=== PATIENT | male | born 1955 | race African-American/Black ===

== ENCOUNTER 2017-08-13 14:34 | Observation (INO) | payer OTHER ==
[~2017-08-13] VITALS: Ht 170.2 cm; Wt 100.8 kg
[~2017-08-13 14:34] MED LIST: MOTRIN600 MG PO
[2017-08-13 15:15] LABS: HEMATOCRIT 39.2 % (38.0-50.0); MCH 33.8 PG (29.0-34.0); MCHC 35.7 G/DL (30.0-36.0); MCV 94.7 FL (86-99); PLATELET COUNT 238 K/uL (156-360); RBC DIS.WIDTH-CV 13.1 % (11.8-14.6); RBC DIS.WIDTH-SD 45.1 % (39-53); RED BLOOD COUNT 4.14 M/uL (4.00-5.50); WHITE BLOOD COUNT 5.7 K/uL (4.1-10.2)
[2017-08-13 15:25] LABS: CHLORIDE 106 mEq/L (99-109); POTASSIUM 3.9 mEq/L (3.7-5.4); SODIUM 142 mEq/L (136-147)
[2017-08-13 15:26] LABS: GLUCOSE 89 mg/dL (70-99)
[2017-08-13 15:30] LABS: CREATININE 1.4 mg/dL (0.6-1.3); GFR ESTIMATE (CALCULATED) > 59 mL/min/ (58.99-99999)
[2017-08-13 15:31] LABS: UREA NITROGEN (BUN) 11 mg/dL (9-23)
[2017-08-13 15:36] LABS: TROP-I INTERPRETATION NEGATIVE; TROPONIN-I < 0.01 ng/mL (0.0-0.30)
[2017-08-13 15:57] LABS: ALBUMIN 4.1 g/dL (3.2-4.8)
[2017-08-13 16:00] LABS: TOTAL PROTEIN 6.9 g/dL (6.4-8.3)
[2017-08-13 16:02] LABS: TOTAL BILIRUBIN 0.3 mg/dL (0.0-1.0)
[2017-08-13 16:03] LABS: ALKALINE PHOSPHATASE 66 IU/L (3-129)
[2017-08-13 16:06] LABS: ALT (GPT) 28 IU/L (3-49); AST (GOT) 19 IU/L (2-34); DIRECT BILIRUBIN 0.1 mg/dL (0.0-0.3)
[2017-08-13] MEDS ORDERED: GABAPENTIN300 MG PO (16:23)
[2017-08-13] MEDS ORDERED: ATORVASTATIN CA20 MG PO (16:24)
[2017-08-13] MEDS ORDERED: [UNRECOGNIZED DRUG - OTHER] PO (16:24)
[2017-08-13] MEDS ORDERED: GLUCOPHAGE XR750 MG PO (16:25)
[2017-08-13] MEDS ORDERED: CLONIDINE HCL0.1 MG PO (16:25)
[2017-08-13] MEDS ORDERED: METOPROLOL TART25 MG PO (16:26)
[2017-08-13 17:54] VITALS: BP 160/81
[2017-08-13] MEDS ORDERED: TRAMADOL HCL50 MG PO (18:23)
[2017-08-13 19:57] LABS: TROP-I INTERPRETATION NEGATIVE; TROPONIN-I < 0.01 ng/mL (0.0-0.30)
[2017-08-13 20:38] VITALS: BP 133/75
[2017-08-13 23:54] VITALS: BP 141/72
[2017-08-14 02:40] LABS: TROP-I INTERPRETATION NEGATIVE; TROPONIN-I 0.01 ng/mL (0.0-0.30)
[2017-08-14 04:20] VITALS: BP 118/76
[2017-08-14 08:23] VITALS: BP 138/80
[2017-08-14] MEDS ORDERED: ASPIR-LOW81 MG PO (10:40)
[2017-08-14] MEDS ORDERED: LOPRESSOR25 MG PO (10:43)
[2017-08-14 11:22] LABS: HEMOGLOBIN A1c (GLYCOHEMOGLOB) 6.1 % (Below 5.7)
== END 2017-08-14 11:20 | disposition home or self-care (01) ==
LOC: EME 14:34 → 4SOUTH 16:45 → EDOF 16:45 → ENRESERV 16:50 → 4SOUTH 17:51
PROVIDERS: Hospitalist
DX: R07.89 Other chest pain (principal); I10 Essential (primary) hypertension; E78.5 Hyperlipidemia, unspecified; E11.42 Type 2 diabetes mellitus with diabetic polyneuropathy; D86.9 Sarcoidosis, unspecified; Z82.49 Family history of ischemic heart disease and other diseases of the circulatory system; Z79.01 Long term (current) use of anticoagulants; Z79.84 Long term (current) use of oral hypoglycemic drugs; Z86.711 Personal history of pulmonary embolism; Z86.718 Personal history of other venous thrombosis and embolism; Z83.3 Family history of diabetes mellitus; Z82.0 Family history of epilepsy and other diseases of the nervous system
CPT/HCPCS: 71046; 80048; 80076; 82948; 83036; 84484; 85027; 85379; 93005; 99281; 99284; G0378; J1644